=== PATIENT | female | born 1940 | race Caucasian/White ===

== ENCOUNTER 2017-10-15 10:59 | Emergency (ER) | payer MEDICARE, OTHER ==
[~2017-10-15] VITALS: Ht 162.6 cm; Wt 75.3 kg
[~2017-10-15 10:59] MED LIST: ACIPHEX20 MG PO; BISOPROLOL FUMA10 MG PO; CALCIUM 600 +1 EA13 PO; CEPHALEXIN500 MG PO; DAILY VITAMIN1 EAC2 PO; DILTIAZEM HCL120 MG PO; FEMARA2.5 MG NG; FERROUS SULFAT325 MG PO; FLUOXETINE HCL10 M1 PO; GLUCOSAMINE H1500 MG PO; LEVOTHYROXINE50 MCG PO; OMEGA 3 1,0001 EACH PO; OXYCODON-ACETA1 EAC2 PO; PERCOCET 7.5-31 EACH PO; RECLAST 55 MG/100 M IV; RHINOCORT AQUA8.6 GM NAS; VITAMIN C500 M4 PO; ZYRTEC10 MG PO
== END 2017-10-15 11:33 | disposition home or self-care (01) ==
LOC: ED 10:59
DX: M25.511 Pain in right shoulder (principal)

== ENCOUNTER 2022-05-20 10:01 | Emergency (ER) | payer MEDICARE, OTHER ==
[~2022-05-20] VITALS: Ht 162.6 cm; Wt 72.6 kg
[~2022-05-20 10:01] MED LIST changes: +MECLIZINE HCL25 MG PO; +ONDANSETRON ODT8 MG PO; +TYLENOL325 MG PO
--- NOTE | 2022-05-21 07:16 | EKG ---
[facility] [address] [facility] [place], [place] [address] Signed Normal sinus rhythm Septal infarct , age undetermined Abnormal ECG When compared with ECG of 03-APR-2022 14:47, No significant change was found Confirmed by ALBERTO LYNNE MD ([id number]) on 05/21/2022 7:16:37 AM Electronically Signed By: ALBERTO LYNNE MD 05/21/22 0716 PATIENT NAME: CHRISMICHELLE Electrocardiogram DATE OF : 38 PHYSICIAN: ALBERTO LYNNE MD REPORT #: [id number] REPORT IS CONFIDENTIAL AND NOT TO BE RELEASED WITHOUT AUTHORIZATION
== END 2022-05-20 18:38 | disposition short-term general hospital (02) ==
LOC: ED 10:01
DX: I63.9 Cerebral infarction, unspecified (principal); I10 Essential (primary) hypertension; Z91.048 Other nonmedicinal substance allergy status; Z91.040 Latex allergy status; Z88.5 Allergy status to narcotic agent; Z88.8 Allergy status to other drugs, medicaments and biological substances; Z79.899 Other long term (current) drug therapy
CPT/HCPCS: 36415; 51701; 70450; 70496; 70498; 71045; 80053; 81001; 84484; 85025; 85610; 85730; 93005; 93010; 99285-25; Q9967

== ENCOUNTER 2022-06-21 09:05 | Emergency (ER) | payer MEDICARE, OTHER ==
[~2022-06-21] VITALS: Ht 162.6 cm; Wt 72.6 kg
[2022-06-21] MEDS ORDERED: CLOPIDOGREL75 MG PO (09:17)
--- NOTE | 2022-06-23 18:57 | EKG ---
[facility] [address] [place] [address] Signed Atrial fibrillation with rapid ventricular response Septal infarct (cited on or before 20-MAY-2022) Cannot rule out Inferior infarct , age undetermined Abnormal ECG When compared with ECG of 20-MAY-2022 10:18, Atrial fibrillation has replaced Sinus rhythm Vent. rate has increased BY 68 BPM Inverted T waves have replaced nonspecific T wave abnormality in Lateral leads Confirmed by ALBERTO LYNNE MD ([id number]) on 06/23/2022 6:57:06 PM Electronically Signed By: ALBERTO LYNNE MD 06/23/22 1857 PATIENT NAME: MICHELLE PEREZ Electrocardiogram DATE OF : 38 PHYSICIAN: ALBERTO LYNNE MD REPORT #: [id number] REPORT IS CONFIDENTIAL AND NOT TO BE RELEASED WITHOUT AUTHORIZATION
== END 2022-06-21 11:06 | disposition home or self-care (01) ==
LOC: ED 09:05
DX: I48.0 Paroxysmal atrial fibrillation (principal); I10 Essential (primary) hypertension; Z86.73 Personal history of transient ischemic attack (TIA), and cerebral infarction without residual deficits; Z91.048 Other nonmedicinal substance allergy status; Z91.040 Latex allergy status; Z88.5 Allergy status to narcotic agent; Z88.8 Allergy status to other drugs, medicaments and biological substances; Z79.899 Other long term (current) drug therapy; Z79.02 Long term (current) use of antithrombotics/antiplatelets
CPT/HCPCS: 36415; 80053; 83735; 84484; 85025; 93005; 93010; 99285-25

== ENCOUNTER 2023-01-11 08:57 | Observation (INO) | payer MEDICARE, OTHER ==
[2023-01-11] VITALS (14 sets, daily range): BP systolic 85–127; BP diastolic 56–95
[~2023-01-11] VITALS: Ht 162.6 cm; Wt 69.0 kg
[~2023-01-11 08:57] MED LIST changes: +ATORVASTATIN CA10 MG PO; +CLOPIDOGREL75 MG PO
[2023-01-11 09:38] LABS: BASOPHILS 0.4 % (0-2); EOSINOPHILS 0.4 % (0-6); HEMATOCRIT 43.5 % (35.0-50.0); HEMOGLOBIN 14.4 g/dL (12.0-18.0); LYMPHOCYTES 9.5 % (24-44); MCHC 33.1 g/dl (30-36); MCV 90.8 fl (81-99); MONOCYTES 9.5 % (0-12); NEUTROPHILS 80.2 % (39-80); PLATELET COUNT 270 K/uL (140-440); RBC 4.79 M/ul (4.3-5.7); RDW 15.8 (10.5-15.0)
[2023-01-11 09:47] LABS: INR 1.05 (0.80-1.30); PROTIME 13.3 Sec (11.2-14.2)
[2023-01-11 09:49] LABS: PARTIAL THROMBOPLASTIN TIME 27.1 Sec (22.9-41.3)
[2023-01-11] MEDS ORDERED: ZYRTEC10 M3 PO (09:49)
[2023-01-11] MEDS ORDERED: DULOXETINE HCL30 MG PO (09:50)
[2023-01-11] MEDS ORDERED: FAMOTIDINE20 MG PO (09:50)
[2023-01-11] MEDS ORDERED: FISH OIL 1,2001 EACH PO (09:51)
[2023-01-11] MEDS ORDERED: IRON325 M1 PO (09:51)
[2023-01-11 09:52] LABS: ALBUMIN 3.9 g/dL (3.4-5.0); ALBUMIN/GLOBULIN RATIO 1.26 (1.1-2.4); ANION GAP 13.6 (7-21); BILIRUBIN, TOTAL 1.3 ng/dL (0.2-1.0); BUN/CREATININE RATIO 10.71 (6.0-28.6); CALCIUM 8.7 mg/dL (8.5-10.1); CREATININE, SERUM 0.84 mg/dL (0.55-1.02); POTASSIUM 3.6 mmol/L (3.5-5.1)
[2023-01-11] MEDS ORDERED: GLUCOSAMINE H1500 MG PO (09:52)
[2023-01-11] MEDS ORDERED: MECLIZINE HCL25 MG PO (09:53)
[2023-01-11] MEDS ORDERED: METOPROLOL SUCC50 MG PO (09:54)
[2023-01-11] MEDS ORDERED: VITAMIN C1000 MG PO (09:54)
[2023-01-11] MEDS ORDERED: CANDICIDAL CAP1 EACH PO (09:54)
[2023-01-11 11:00] LABS: BILIRUBIN, URINE NEGATIVE (negative); BLOOD/HGB, URINE NEGATIVE (Negative); KETONE, URINE NEGATIVE (Negative); LEUK ESTERASE, URINE NEGATIVE (negative); NITRITE, URINE NEGATIVE (negative)
[2023-01-11 11:05] LABS: INFLUENZA B NAA NEGATIVE (NEGATIVE); RESPIRATORY SYNCYTIAL VIR NAA NEGATIVE (NEGATIVE)
[2023-01-11 11:06] LABS: CRYSTALS, URINE NONE SEEN (0-1+); EPITHELIAL CELLS, URINE SQUAMOUS 2+ /lpf (0-1+); RED BLOOD CELLS, URINE 0-1 /hpf (0-5)
[2023-01-11 11:07] LABS: BACTERIA, URINE RARE /hpf (negative); CASTS, URINE NONE SEEN \\lpf; COLLECTION TYPE, URINE CLEAN CATCH; REFLEX CULTURE, URINE No (No)
[2023-01-11] MEDS ORDERED: ATORVASTATIN CA40 MG PO (12:31)
[2023-01-11] MEDS ORDERED: LEVOTHYROXINE25 MCG PO (12:32)
--- NOTE | 2023-01-11 12:47 | NUR ---
pt to rm 129 via akshat pringle, pt stood at bed and trsf to bed, oriented, clear speech, alert. call light in reach.
--- NOTE | 2023-01-11 14:22 | NUR ---
medications reconciled using MARS from facility and pharmacy records
--- NOTE | 2023-01-11 15:01 | NUR ---
PT ABLE TO PARTICIPATE IN CONVERSATION. CONSENTED TO PRAYER. PRAYED FOR ORIENTAL ORTHODOX OF BODY AND SPIRIT.
--- NOTE | 2023-01-11 20:05 | NUR ---
REPORT TAKEN. PT IS UP TO BEDSIDE COMMODE. PT ASSESSMENT WITH IN NORMAL LIMIT, FOCUSED NEURO ASSESSMENT SHOWS FORGETFULLNESS, DISORIENTATED TO TIME AND DATE, AND SLOWED RESPONSES. NIHSS 2. PT CONVERTED TO SINUS BRADYCARDIA AT 2002, CARDIZEM DRIP TURNED OFF. VS STABLE. PT IS RESTING IN BED, WITH NO REPORTS OF PAIN. ALL QUESTIONS AND CONCERNS ADDRESSED AND CALL LIGHT IS WITHIN REACH. BED ALARM SET.
--- NOTE | 2023-01-11 22:00 | NUR ---
PT RESTING IN BED, NEURO ASSESSMENT REVIEWED WITH NO CHANGES AT THIS TIME. VS STABLE. CALL LIGHT WITH IN REACH. NO QUESTIONS OR CONCERNS AT THIS TIME. BED ALARM SET.
[2023-01-12] VITALS (10 sets, daily range): BP systolic 117–143; BP diastolic 72–98
--- NOTE | 2023-01-12 | NUR ---
PT HAS NO NEURO CHANGES AT THIS TIME. VS ARE STABLE AND WNL. ASSESSMENT WITH IN NORMAL LIMITS. ALL QUESTIONS AND CONCERNS ADDRESSED AT THIS TIME. CALL LIGHT WITH IN REACH AND BED ALARM SET.
--- NOTE | 2023-01-12 02:00 | NUR ---
PT RESTING IN BED. NO NEURO CHANGES AT THIS TIME. VS ARE WNL. ALL QUESTIONS AND CONCERNS ANSWERED. CALL LIGHT WITH IN REACH. BED ALARM IS SET
--- NOTE | 2023-01-12 04:34 | NUR ---
PT IS UP TO BEDSIDE COMMODE, PT TRANSFERS WELL WITH STAND BY ASSIST X1. PT HAS NO NEURO CHANGES AT THIS TIME. VS REMAIN WITHIN NORMAL LIMITS. ALL QUESTIONS AND CONCERNS ARE ADDRESSED. PT IS REPOSITIONED BACK IN BED. CALL LIGHT IS WITH IN REACH AND BED ALARM IS SET.
[2023-01-12 05:42] LABS: BASOPHILS 1.3 % (0-2); EOSINOPHILS 1.8 % (0-6); HEMATOCRIT 43.7 % (35.0-50.0); HEMOGLOBIN 14.4 g/dL (12.0-18.0); MCH 29.9 (27-36); MCV 90.7 fl (81-99); MONOCYTES 10.7 % (0-12); NEUTROPHILS 72.2 % (39-80); PLATELET COUNT 270 K/uL (140-440); RBC 4.82 M/ul (4.3-5.7); RDW 15.8 (10.5-15.0)
[2023-01-12 06:11] LABS: ALBUMIN 3.5 g/dL (3.4-5.0); ALBUMIN/GLOBULIN RATIO 1.25 (1.1-2.4); ANION GAP 15.1 (7-21); BILIRUBIN, TOTAL 0.9 ng/dL (0.2-1.0); BUN/CREATININE RATIO 15.21 (6.0-28.6); CALCIUM 8.5 mg/dL (8.5-10.1); CHOLESTEROL/HDL RATIO 1.9; CREATININE, SERUM 0.92 mg/dL (0.55-1.02); PHOSPHORUS, INORGANIC 3.9 mg/dL (2.5-4.9); POTASSIUM 3.1 mmol/L (3.5-5.1); PROTEIN, TOTAL 6.3 g/dL (6.4-8.2)
--- NOTE | 2023-01-12 06:15 | NUR ---
PT HAS HAD NO NEURO CHANGES. PT IS RESTING IN BED. VS ARE WNL. PT HAS NO QUESTIONS OR CONCERNS AT THIS TIME. CALL LIGHT IS WITHIN REACH AND BED ALARM IS ON.
--- NOTE | 2023-01-12 07:30 | NUR ---
REPORT RECEIVED. ECHO BEING DONE AT BEDSIDE.
--- NOTE | 2023-01-12 08:10 | NUR ---
OOB TO CHAIR FOR BREAKFAST. MOVING WELL WITH ASSIST. ABLE TO FOLLOW COMMANDS. WHEN ASKE THE YEAR, STATES 2031. IS L[place]TT[place].
--- NOTE | 2023-01-12 08:23 | NUR ---
REQUEST MADE TO YOLANDA FOR RECORDS/INFORMATION REGARDING COIL PROCEDURE.
--- NOTE | 2023-01-12 10:00 | NUR ---
PHYS THERAPY HERE TO WORK WITH PATIENT. AMBULATED IN HALLWAY. SEE PT NOTE. AFTER AMBULATION, BACK TO CHAIR.
--- NOTE | 2023-01-12 10:30 | NUR ---
INTO SEE PATIENT WITH DR. WHEELER. PATIENT SITTING UP IN CHAIR, STATES SHE IS FEELING WELL. PATIENT LIVES AT [facility] AND PLANS TO RETURN WHEN STABLE. PATIENT HAS PREVIOUS HISTORY OF CVA AND NORMALLY AMBULATES WITH A CANE. PATIENT IS ABLE TO GET HERSELF TO AND FROM THE DINNING ROOM. DENIES NEEDS FOR FURTHER DME. DENIES FINANCIAL NEEDS. PATIENTS DAUGHTER CARLIE IS THE BEST CONTACT FOR HER. NO FURTHER QUESTION OR CONCERNS FROM THE PATIENT AT THIS TIME. PER DR. WHEELER PATIENT MAY NEED MRI FOR FURTHER WORK UP.
--- NOTE | 2023-01-12 11:08 | NUR ---
DINESH TO SPEAK WITH CARE TEAM AT DR. CALDERON'S OFFICE [phone]. AFTER REVIEW OF THE PATIENT CHART BY DR. CALDERON'S MANAGER CREDIT, "NO CLIPS WERE INVOLVED IN THE PROCEDURE COILING PROCEDURE, JUST GLUE." ALL HARDWARE IS MRI COMPATIBLE. DR. WHEELER ADVISED AND GIVEN THE CONTACT NUMBER FOR DR. CALDERON'S OFFICE.
--- NOTE | 2023-01-12 11:34 | NUR ---
UR NOTE: MCG MEETS STROKE: ISCHEMIC OBSERVATION CARE
--- NOTE | 2023-01-12 12:16 | NUR ---
ER NOTE, H&P, PT/OT/ST FAXED TO [facility].
--- NOTE | 2023-01-12 12:50 | NUR ---
PATIENT SITTING UP IN CHAIR, FINSIHED WITH LUNCH. PATIENT DENIES TOILET NEED. CALL LIGHT IN EASY REACH.
--- NOTE | 2023-01-12 14:15 | NUR ---
TO MRI VIA W/C. OKAY WITH IF PATIENT GOES TO MRI W/O RN.
--- NOTE | 2023-01-12 15:10 | NUR ---
RETURN TO CCU. TOLERATED MRI WELL.
--- NOTE | 2023-01-12 15:25 | NUR ---
TYLENOL GIVEN FOR THOMAS. DR. WHEELER AWARE PATIENT HAD HER MRI. AWAITING RESULTS.
[2023-01-12] MEDS ORDERED: ELIQUIS5 MG PO (16:19)
--- NOTE | 2023-01-12 17:07 | NUR ---
Orders and dc summary faxed to Alie at [facility]. Texted Lanette Strange, to let her know they have been faxed and pt is leaving shortly by Taxi.
--- NOTE | 2023-01-12 17:40 | NUR ---
DISCHARGE INSTRUCTIONS GIVEN. DISSCHARGED TO [facility]. WILL HAVE TAXI RIDE HOME.
--- NOTE | 2023-01-12 22:27 | EKG ---
[facility] [address] [facility] [place], [place] [address] Signed Atrial fibrillation with rapid ventricular response with premature ventricular or aberrantly conducted complexes Possible Anterior infarct (cited on or before 20-MAY-2022) ST \T\ T wave abnormality, consider inferior ischemia Abnormal ECG When compared with ECG of 29-OCT-2022 11:51, Atrial fibrillation has replaced Sinus rhythm Vent. rate has increased BY 79 BPM Non-specific change in ST segment in Anterior leads Nonspecific T wave abnormality now evident in Inferior leads Nonspecific T wave abnormality now evident in Lateral leads Confirmed by Grayson Wheeler MD () on 01/12/2023 10:26:43 PM Electronically Signed By: GRAYSON WHEELER MD 01/12/232226 PATIENT NAME: MICHELLE PEREZ Electrocardiogram DATE OF : 38 PHYSICIAN: GRAYSON WHEELER MD REPORT #: [id number] REPORT IS CONFIDENTIAL AND NOT TO BE RELEASED WITHOUT AUTHORIZATION
== END 2023-01-12 17:29 | disposition home or self-care (01) ==
LOC: ED 08:57 → CCU 08:58
PROVIDERS: Emergency Medicine; ADMIT Family Medicine; ATTEND Family Medicine
DX: I63.9 Cerebral infarction, unspecified (principal); R47.9 Unspecified speech disturbances; R13.10 Dysphagia, unspecified; I48.91 Unspecified atrial fibrillation; E03.9 Hypothyroidism, unspecified; I10 Essential (primary) hypertension; Z66 Do not resuscitate; Z88.5 Allergy status to narcotic agent; Z88.8 Allergy status to other drugs, medicaments and biological substances; Z79.899 Other long term (current) drug therapy; Z20.822 Contact with and (suspected) exposure to COVID-19
CPT/HCPCS: 36415; 70450; 70496; 70498; 70551; 71045; 72125; 80053; 80061; 81001; 83036; 83735; 84100; 84443; 84484; 85025; 85610; 85730; 87502; 92610; 93005; 93010; 93306; 96365; 96366; 96376; 97161; 97165; 99285-25; A9270; C9803; G0378; J3480; J3490; J7060; Q9967; U0002

== ENCOUNTER 2023-03-04 11:16 | Emergency (ER) | payer MEDICARE, OTHER ==
[~2023-03-04] VITALS: Ht 162.6 cm; Wt 68.9 kg
[~2023-03-04 11:16] MED LIST changes: +ATORVASTATIN CA40 MG PO; +CANDICIDAL CAP1 EACH PO; +DULOXETINE HCL30 MG PO; +ELIQUIS5 MG PO; +FAMOTIDINE20 MG PO; +FISH OIL 1,2001 EACH PO; +IRON325 M1 PO; +LEVOTHYROXINE25 MCG PO; +METOPROLOL SUCC50 MG PO; +VITAMIN C1000 MG PO; +ZYRTEC10 M3 PO
[2023-03-04] MEDS ORDERED: ELIQUIS5 MG (11:22)
[2023-03-04 11:50] LABS: BASOPHILS 1.2 % (0-2); EOSINOPHILS 1.6 % (0-6); HEMATOCRIT 40.4 % (35.0-50.0); HEMOGLOBIN 13.6 g/dL (12.0-18.0); LYMPHOCYTES 21.2 % (24-44); MCH 30.6 (27-36); MCHC 33.7 g/dl (30-36); MCV 90.7 fl (81-99); MONOCYTES 12.5 % (0-12); NEUTROPHILS 63.5 % (39-80); PLATELET COUNT 323 K/uL (140-440); RBC 4.46 M/ul (4.3-5.7); RDW 14.7 (10.5-15.0)
[2023-03-04 11:56] LABS: ALBUMIN 3.3 g/dL (3.4-5.0); ANION GAP 12.7 (7-21); BILIRUBIN, TOTAL 0.8 ng/dL (0.2-1.0); BUN/CREATININE RATIO 13.59 (6.0-28.6); CALCIUM 8.9 mg/dL (8.5-10.1); CREATININE, SERUM 1.03 mg/dL (0.55-1.02); POTASSIUM 3.7 mmol/L (3.5-5.1); PROTEIN, TOTAL 6.6 g/dL (6.4-8.2)
[2023-03-04 12:18] LABS: BILIRUBIN, URINE NEGATIVE (negative); BLOOD/HGB, URINE NEGATIVE (Negative); KETONE, URINE NEGATIVE (Negative); LEUK ESTERASE, URINE NEGATIVE (negative); NITRITE, URINE NEGATIVE (negative)
[2023-03-04] MEDS ORDERED: ONDANSETRON ODT4 MG PO (13:25)
[2023-03-04 13:43] VITALS: BP 128/94
--- NOTE | 2023-03-04 15:23 | EKG ---
[facility] [address] [facility] [place] [address] Signed Atrial fibrillation with rapid ventricular response Septal infarct (cited on or before 20-MAY-2022) Abnormal ECG When compared with ECG of 11-JAN-2023 10:12, ST no longer depressed in Inferior leads ST no longer depressed in Lateral leads Nonspecific T wave abnormality no longer evident in Inferior leads Nonspecific T wave abnormality no longer evident in Lateral leads Confirmed by DARON BORDEN MD ([id number]) on 03/04/2023 3:22:42 PM Electronically Signed By: DARON BORDEN 03/04/23 1523 PATIENT NAME: MICHELLE PEREZ Electrocardiogram DATE OF : 38 PHYSICIAN: DARON BORDEN REPORT #: [id number] REPORT IS CONFIDENTIAL AND NOT TO BE RELEASED WITHOUT AUTHORIZATION
== END 2023-03-04 13:40 | disposition home or self-care (01) ==
LOC: ED 11:16
PROVIDERS: Emergency Medicine
DX: R10.32 Left lower quadrant pain (principal); I10 Essential (primary) hypertension; I48.91 Unspecified atrial fibrillation; K21.9 Gastro-esophageal reflux disease without esophagitis; E78.5 Hyperlipidemia, unspecified; E03.9 Hypothyroidism, unspecified; Z79.02 Long term (current) use of antithrombotics/antiplatelets; Z79.899 Other long term (current) drug therapy; Z79.890 Hormone replacement therapy; Z88.5 Allergy status to narcotic agent; Z88.8 Allergy status to other drugs, medicaments and biological substances; Z91.040 Latex allergy status; Z91.048 Other nonmedicinal substance allergy status
CPT/HCPCS: 36415; 74174; 80053; 81003; 83690; 85025; 93005; 93010; J1170; J2405; Q9967

== ENCOUNTER 2024-04-05 11:57 | Emergency (ER) | payer MEDICARE, OTHER ==
[~2024-04-05] VITALS: Ht 162.6 cm; Wt 75.7 kg
[~2024-04-05 11:57] MED LIST changes: +ELIQUIS5 MG; +HYDROCODON-ACE1 EA10 PO; +ONDANSETRON ODT4 MG PO
[2024-04-05] MEDS ORDERED: ondansetron HCL 4 MG/2 ML VIAL IV ONE (12:30)
[2024-04-05 12:45] LABS: BASOPHILS 1.3 % (0-2); EOSINOPHILS 0.2 % (0-6); HEMATOCRIT 31.6 % (35.0-50.0); HEMOGLOBIN 10.2 g/dL (12.0-18.0); LYMPHOCYTES 12.8 % (24-44); MCHC 32.2 g/dl (30-36); MCV 87.1 fl (81-99); MONOCYTES 6.3 % (0-12); NEUTROPHILS 79.4 % (39-80); PLATELET COUNT 434 K/uL (140-440); RBC 3.63 M/ul (4.3-5.7); RDW 15.2 (10.5-15.0)
[2024-04-05 13:01] LABS: ALBUMIN 3.6 g/dL (3.4-5.0); ALBUMIN/GLOBULIN RATIO 1.06 (1.1-2.4); ANION GAP 12.2 (7-21); BILIRUBIN, TOTAL 0.6 ng/dL (0.2-1.0); BUN/CREATININE RATIO 16.5 (6.0-28.6); CALCIUM 8.9 mg/dL (8.5-10.1); CREATININE, SERUM 1.03 mg/dL (0.55-1.02); MAGNESIUM 2.2 mg/dL (1.8-2.4); POTASSIUM 4.2 mmol/L (3.5-5.1)
[2024-04-05 13:27] LABS: INR 1.11 (0.80-1.30); PROTIME 14.3 Sec (11.2-14.2)
[2024-04-05] MEDS ORDERED: ACETAMINOPHEN 325 MG TAB PO ONE (15:30)
[2024-04-05 15:46] VITALS: BP 117/72
== END 2024-04-05 15:47 | disposition home or self-care (01) ==
LOC: ED 11:57
PROVIDERS: Emergency Medicine
DX: R10.11 Right upper quadrant pain (principal); I10 Essential (primary) hypertension; E03.9 Hypothyroidism, unspecified; Z86.73 Personal history of transient ischemic attack (TIA), and cerebral infarction without residual deficits; Z91.09 Other allergy status, other than to drugs and biological substances; Z91.040 Latex allergy status; Z88.5 Allergy status to narcotic agent; Z88.8 Allergy status to other drugs, medicaments and biological substances; Z79.01 Long term (current) use of anticoagulants; Z79.899 Other long term (current) drug therapy
CPT/HCPCS: 36415; 76705; 80053; 83690; 83735; 85025; 85610; 96374; 99284-25; A9270; J2405

== ENCOUNTER 2024-05-23 13:57 | Emergency (ER) | payer MEDICARE, OTHER ==
[~2024-05-23] VITALS: Ht 162.6 cm; Wt 78.9 kg
[2024-05-23 14:17] LABS: BASOPHILS 2.3 % (0-2); EOSINOPHILS 1.7 % (0-6); HEMATOCRIT 30.1 % (35.0-50.0); HEMOGLOBIN 9.8 g/dL (12.0-18.0); LYMPHOCYTES 22.1 % (24-44); MCH 28.2 (27-36); MCHC 32.4 g/dl (30-36); MCV 86.8 fl (81-99); MONOCYTES 11.4 % (0-12); NEUTROPHILS 62.5 % (39-80); PLATELET COUNT 402 K/uL (140-440); RBC 3.47 M/ul (4.3-5.7)
[2024-05-23 14:36] LABS: ALBUMIN 3.5 g/dL (3.4-5.0); ALBUMIN/GLOBULIN RATIO 1.21 (1.1-2.4); ANION GAP 11.9 (7-21); BILIRUBIN, TOTAL 0.3 mg/dL (0.2-1.0); BUN/CREATININE RATIO 13.04 (6.0-28.6); CREATININE, SERUM 0.92 mg/dL (0.55-1.02); MAGNESIUM 2.1 mg/dL (1.8-2.4); POTASSIUM 3.9 mmol/L (3.5-5.1); PROTEIN, TOTAL 6.4 g/dL (6.4-8.2)
[2024-05-23 15:21] VITALS: BP 130/79
--- NOTE | 2024-05-24 16:30 | EKG ---
[facility] [address] [facility] [place] [address] Signed Normal sinus rhythm Possible Anterior infarct (cited on or before 20-MAY-2022) Abnormal ECG When compared with ECG of 04-MAR-2023 12:15, Sinus rhythm has replaced Atrial fibrillation Confirmed by Grayson Wheeler MD () on 05/24/2024 4:30:12 PM Electronically Signed By: GRAYSON WHEELER MD 05/24/24 1630 PATIENT NAME: MICHELLE PEREZ Electrocardiogram DATE OF : 38 PHYSICIAN: GRAYSON WHEELER MD REPORT #: [id number] REPORT IS CONFIDENTIAL AND NOT TO BE RELEASED WITHOUT AUTHORIZATION
== END 2024-05-23 15:22 | disposition home or self-care (01) ==
LOC: ED 13:57
PROVIDERS: Emergency Medicine
DX: I45.5 Other specified heart block (principal); D64.9 Anemia, unspecified; I10 Essential (primary) hypertension; I48.91 Unspecified atrial fibrillation; E03.9 Hypothyroidism, unspecified; K21.9 Gastro-esophageal reflux disease without esophagitis; Z86.73 Personal history of transient ischemic attack (TIA), and cerebral infarction without residual deficits; Z88.5 Allergy status to narcotic agent; Z88.8 Allergy status to other drugs, medicaments and biological substances; Z91.040 Latex allergy status; Z91.048 Other nonmedicinal substance allergy status; Z79.01 Long term (current) use of anticoagulants; Z79.890 Hormone replacement therapy; Z79.899 Other long term (current) drug therapy
CPT/HCPCS: 36415; 80053; 83735; 84484; 85025; 93005; 93010; 99284

== ENCOUNTER 2024-06-22 19:37 | Emergency (ER) | payer MEDICARE, OTHER ==
[~2024-06-22] VITALS: Ht 162.6 cm; Wt 78.0 kg
[2024-06-22] MEDS ORDERED: FAMOTIDINE 20 MG/ 2 ML VIAL IV ONE (20:15)
[2024-06-22] MEDS ORDERED: KETOROLAC TROMETHAMINE 15 MG/ML VIAL IV ONE (20:15)
[2024-06-22] MEDS ORDERED: ACETAMINOPHEN500 M1 PO (20:19)
[2024-06-22] MEDS ORDERED: PROBIOTIC1 EAC8 (20:20)
[2024-06-22 20:38] LABS: BASOPHILS 1.5 % (0-2); EOSINOPHILS 2.3 % (0-6); HEMATOCRIT 26.5 % (35.0-50.0); HEMOGLOBIN 8.5 g/dL (12.0-18.0); LYMPHOCYTES 23.4 % (24-44); MCH 26.9 (27-36); MCV 84.1 fl (81-99); MONOCYTES 10.6 % (0-12); NEUTROPHILS 62.2 % (39-80); PLATELET COUNT 394 K/uL (140-440); RBC 3.15 M/ul (4.3-5.7); RDW 15.5 (10.5-15.0)
[2024-06-22 20:55] LABS: ALBUMIN 3.2 g/dL (3.4-5.0); ALBUMIN/GLOBULIN RATIO 1.19 (1.1-2.4); ANION GAP 11.3 (7-21); BILIRUBIN, TOTAL 0.2 mg/dL (0.2-1.0); BUN/CREATININE RATIO 30.86 (6.0-28.6); CALCIUM 8.5 mg/dL (8.5-10.1); CREATININE, SERUM 0.81 mg/dL (0.55-1.02); POTASSIUM 3.3 mmol/L (3.5-5.1); PROTEIN, TOTAL 5.9 g/dL (6.4-8.2)
[2024-06-22] MEDS ORDERED: LACTATED RINGER'S 1,000 ML IV ONE (21:15)
[2024-06-22 23:17] LABS: BILIRUBIN, URINE NEGATIVE (negative); BLOOD/HGB, URINE TRACE-L (Negative); KETONE, URINE NEGATIVE (Negative); LEUK ESTERASE, URINE TRACE (negative); NITRITE, URINE NEGATIVE (negative)
[2024-06-22 23:26] LABS: BACTERIA, URINE RARE /hpf (negative); CASTS, URINE NONE SEEN \\lpf; COLLECTION TYPE, URINE CLEAN CATCH; CRYSTALS, URINE NONE SEEN (0-1+); EPITHELIAL CELLS, URINE SQUAMOUS 2+ /lpf (0-1+); RED BLOOD CELLS, URINE 0-1 /hpf (0-5); REFLEX CULTURE, URINE No (No)
[2024-06-23] MEDS ORDERED: AMOXICILLIN/CLAVULANATE K 875 MG TAB PO ONE (03:00)
[2024-06-23] MEDS ORDERED: DEXAMETHASONE SOD PHOS 10 MG/ML VIAL IV ONE (03:00)
[2024-06-23] MEDS ORDERED: METHYLPREDNISOLO4 M1 PO (03:05)
[2024-06-23] MEDS ORDERED: AMOX TR-K CLV1 EAC1 PO (03:05)
[2024-06-23 04:26] VITALS: BP 131/68
--- NOTE | 2024-06-23 15:56 | EKG ---
[facility] [address] [facility] [place] [address] Signed Sinus rhythm with premature supraventricular complexes Possible Anterior infarct (cited on or before 20-MAY-2022) Abnormal ECG When compared with ECG of 23-MAY-2024 14:00, premature supraventricular complexes are now present Confirmed by Grayson Wheeler MD () on 06/23/2024 3:56:18 PM Electronically Signed By: GRAYSON WHEELER MD 06/23/24 1556 PATIENT NAME: MICHELLE PEREZ Electrocardiogram DATE OF : 38 PHYSICIAN: GRAYSON WHEELER MD REPORT #: [id number] REPORT IS CONFIDENTIAL AND NOT TO BE RELEASED WITHOUT AUTHORIZATION
== END 2024-06-23 06:20 | disposition home or self-care (01) ==
LOC: ED 19:37
PROVIDERS: Internal Medicine
DX: M94.0 Chondrocostal junction syndrome [Tietze] (principal); N39.0 Urinary tract infection, site not specified; I10 Essential (primary) hypertension; I48.91 Unspecified atrial fibrillation; Z91.048 Other nonmedicinal substance allergy status; Z91.040 Latex allergy status; Z88.5 Allergy status to narcotic agent; Z88.8 Allergy status to other drugs, medicaments and biological substances
CPT/HCPCS: 36415; 71045; 80053; 81001; 83690; 84484; 85025; 85379; 87088; 93005; 93010; 96374; 96375; 99285-25; J1100; J1885; J7121

== ENCOUNTER 2024-08-02 09:32 | Emergency (ER) | payer MEDICARE, OTHER ==
[~2024-08-02] VITALS: Ht 162.6 cm; Wt 80.4 kg
[~2024-08-02 09:32] MED LIST changes: +ACETAMINOPHEN500 M1 PO; +AMOX TR-K CLV1 EAC1 PO; +METHYLPREDNISOLO4 M1 PO; +PROBIOTIC1 EAC8
[2024-08-02 09:55] LABS: BASOPHILS 0.2 % (0-2); EOSINOPHILS 1.4 % (0-6); HEMATOCRIT 27.9 % (35.0-50.0); HEMOGLOBIN 8.7 g/dL (12.0-18.0); LYMPHOCYTES 15.5 % (24-44); MCH 26.3 (27-36); MCHC 31.3 g/dl (30-36); MONOCYTES 7.8 % (0-12); NEUTROPHILS 75.1 % (39-80); PLATELET COUNT 520 K/uL (140-440); RBC 3.32 M/ul (4.3-5.7); RDW 17.3 (10.5-15.0)
[2024-08-02 10:07] LABS: ALBUMIN 3.2 g/dL (3.4-5.0); ALBUMIN/GLOBULIN RATIO 1.07 (1.1-2.4); ANION GAP 14.9 (7-21); BILIRUBIN, TOTAL 0.2 mg/dL (0.2-1.0); BUN/CREATININE RATIO 22.34 (6.0-28.6); CALCIUM 8.1 mg/dL (8.5-10.1); CREATININE, SERUM 0.94 mg/dL (0.55-1.02); POTASSIUM 3.9 mmol/L (3.5-5.1); PROTEIN, TOTAL 6.2 g/dL (6.4-8.2)
[2024-08-02 11:31] LABS: BILIRUBIN, URINE NEGATIVE (negative); BLOOD/HGB, URINE NEGATIVE (Negative); KETONE, URINE NEGATIVE (Negative); LEUK ESTERASE, URINE NEGATIVE (negative); NITRITE, URINE NEGATIVE (negative); PH, URINE 7.5 (5-7)
[2024-08-02 11:33] VITALS: BP 120/76
== END 2024-08-02 11:30 | disposition home or self-care (01) ==
LOC: ED 09:32
PROVIDERS: Emergency Medicine
DX: R53.1 Weakness (principal); I10 Essential (primary) hypertension; I48.91 Unspecified atrial fibrillation; E03.9 Hypothyroidism, unspecified; Z79.899 Other long term (current) drug therapy; Z91.048 Other nonmedicinal substance allergy status; Z91.040 Latex allergy status; Z88.5 Allergy status to narcotic agent; Z88.8 Allergy status to other drugs, medicaments and biological substances; Z86.73 Personal history of transient ischemic attack (TIA), and cerebral infarction without residual deficits
CPT/HCPCS: 36415; 80053; 81003; 85025; 99284

== ENCOUNTER 2024-10-11 12:26 | Emergency (ER) | payer MEDICARE, OTHER ==
[~2024-10-11] VITALS: Ht 162.6 cm; Wt 81.0 kg
[2024-10-11 12:43] LABS: BASOPHILS 1.1 % (0.1-1.2); EOSINOPHILS 0.9 % (0.7-5.8); LYMPHOCYTES 11.1 % (19.3-51.7); MCH 26.9 PG (25.6-32.2); MCHC 30.9 g/dL (32.2-35.5); MCV 86.9 fL (79.4-94.8); MONOCYTES 7.4 % (4.7-12.5); NEUTROPHILS 79.1 % (34.0-71.1); RBC 3.98 M/uL (3.93-5.22)
[2024-10-11 13:04] LABS: ALT (SGPT) 23.0 U/L (14-59); AST (SGOT) 20.0 U/L (15-37); GLOMERULAR FILTRATION RATE,EST 76.0 mL/min (>60); PROTEIN, TOTAL 6.7 g/dL (6.4-8.2); UREA NITROGEN 19.0 mg/dL (7-18)
[2024-10-11 13:27] LABS: BLOOD/HGB, URINE NEGATIVE (Negative); KETONE, URINE NEGATIVE (Negative); LEUK ESTERASE, URINE NEGATIVE (negative); NITRITE, URINE NEGATIVE (negative)
[2024-10-11 15:06] VITALS: BP 158/78
== END 2024-10-11 15:46 | disposition home or self-care (01) ==
LOC: ED 12:26
PROVIDERS: Emergency Medicine
DX: R11.0 Nausea (principal); I10 Essential (primary) hypertension; I48.91 Unspecified atrial fibrillation; K21.9 Gastro-esophageal reflux disease without esophagitis; Z91.040 Latex allergy status; Z79.01 Long term (current) use of anticoagulants
CPT/HCPCS: 36415; 51701; 71045; 80053; 81003; 83690; 84484; 85025; 99284-25; J2405

== ENCOUNTER 2024-12-20 13:07 | Emergency (ER) | payer MEDICARE, OTHER ==
[~2024-12-20] VITALS: Ht 162.6 cm; Wt 80.5 kg
[2024-12-20 13:17] LABS: BASOPHILS 0.6 % (0.1-1.2); EOSINOPHILS 0.1 % (0.7-5.8); LYMPHOCYTES 5.6 % (19.3-51.7); MCH 28.7 PG (25.6-32.2); MCHC 32.6 g/dL (32.2-35.5); MCV 88.0 fL (79.4-94.8); MONOCYTES 8.1 % (4.7-12.5); NEUTROPHILS 85.3 % (34.0-71.1); RBC 4.74 M/uL (3.93-5.22)
[2024-12-20 13:38] LABS: ALT (SGPT) 18.0 U/L (14-59); AST (SGOT) 23.0 U/L (15-37); GLOMERULAR FILTRATION RATE,EST 67.0 mL/min (>60); PROTEIN, TOTAL 7.2 g/dL (6.4-8.2); UREA NITROGEN 11.0 mg/dL (7-18)
[2024-12-20] MEDS ORDERED: ACETAMINOPHEN 325 MG TAB PO ONE (13:45)
[2024-12-20] MEDS ORDERED: POTASSIUM CHLORIDE 10 MEQ TABCR PO ONE (15:30)
[2024-12-20] MEDS ORDERED: POTASSIUM CHLORIDE 10 MEQ/100 ML BAG IV ONE (15:30)
[2024-12-20] MEDS ORDERED: POTASSIUM CHLO20 ME2 PO (15:30)
[2024-12-20 16:57] VITALS: BP 96/58
--- NOTE | 2024-12-24 10:39 | EKG ---
[facility] [address] [facility] [place], [place] [address] Signed Atrial fibrillation with rapid ventricular response Inferior infarct , age undetermined Anteroseptal infarct , age undetermined ST \T\ T wave abnormality, consider lateral ischemia Abnormal ECG No previous ECGs available Confirmed by Sonia Bowles DO ([id number]) on 12/24/2024 10:39:25 AM Electronically Signed By: SONIA BOWLES DO 12/24/24 1039 PATIENT NAME: MICHELLE PEREZ NIGHAT Electrocardiogram DATE OF : 38 PHYSICIAN: SONIA BOWLES DO REPORT #: [id number] REPORT IS CONFIDENTIAL AND NOT TO BE RELEASED WITHOUT AUTHORIZATION
== END 2024-12-20 17:23 | disposition home or self-care (01) ==
LOC: ED 13:07
PROVIDERS: Emergency Medicine
DX: I48.0 Paroxysmal atrial fibrillation (principal); E87.6 Hypokalemia; I10 Essential (primary) hypertension; K21.9 Gastro-esophageal reflux disease without esophagitis; Z91.048 Other nonmedicinal substance allergy status; Z86.73 Personal history of transient ischemic attack (TIA), and cerebral infarction without residual deficits; Z91.040 Latex allergy status; Z88.5 Allergy status to narcotic agent; Z88.8 Allergy status to other drugs, medicaments and biological substances; Z79.01 Long term (current) use of anticoagulants; Z79.899 Other long term (current) drug therapy
CPT/HCPCS: 36415; 71045; 80053; 83735; 84484; 85025; 93005; 93010; 94640; 96365; 96375; 99285-25; A9270; J3480

== ENCOUNTER 2025-02-12 11:56 | Inpatient (IN) | payer MEDICARE, OTHER ==
[~2025-02-12] VITALS: Ht 162.6 cm; Wt 77.2 kg
--- OUTSIDE RECORDS SUMMARY | ~2025-02-12 | XMS | Continuity of Care Document ---
Demographics + + + | Address | [address] | | | [place] [address] | + + + | Preferred Language | Unknown | + + + | Marital Status | | + + + | Restorationism Affiliation | Unknown | + + + | Race | White | + + + | Ethnic Group | Not or | + + + Author + + + | Author | [facility] | + + + | Organization | [facility] | + + + | Address | [address] | | | [place] [address] | + + + | Phone | | + + + Care Team Providers + + + + | Care Communication Clerk Name | Role | Phone | + + + + Unavailable | Unavailable | + + + + Unavailable | Unavailable | + + + + Allergies No information. Encounters No information. Functional Status No information. Immunizations + + + + | date | description | facility | + + + + | (no date) | No vaccine administered | [facility] | | | [facility] | + + + + Medications + + + + | date | description | facility | + + + + | (no date) | cetirizine hydrochloride | [facility] | | | 10 MG Oral Capsule | [facility] | + + + + | (no date) | acetaminophen 325 MG / | [facility] | | | oxycodone hydrochloride 7.5 | [facility] | | | MG Oral T | | + + + + | (no ) | calcium carbonate 1500 MG | [facility] | | | / cholecalciferol 800 UNT | [facility] | | | Oral Tab | | + + + + | (no ) | apixaban 5 MG Oral Tablet | [facility] | | | [Eliquis] | [facility] | + + + + | 2024-12-20 00:00 | potassium chloride 20 MEQ | [facility] | | | Extended Release Oral | [facility] | | | Tablet | | + + + + | (no ) | acetaminophen 500 MG Oral | [facility] | | | Tablet | [facility] | + + + + | (no ) | ascorbic acid 1000 MG Oral | [facility] | | | Tablet | [facility] | + + + + | (no ) | clopidogrel 75 MG Oral | [facility] | | | Tablet | [facility] | + + + + | (no ) | famotidine 20 MG Oral | [facility] | | | Tablet | [facility] | + + + + | (no ) | ferrous sulfate 325 MG | [facility] | | | Oral Tablet | [facility] | + + + + | (no ) | duloxetine 30 MG Delayed | [facility] | | | Release Oral Capsule | [facility] | + + + + | (no date) | atorvastatin 40 MG Oral | [facility] | | | Tablet | [facility] | + + + + | (no date) | 100 ML zoledronic acid | [facility] | | | 0.05 MG/ML Injection | [facility] | | | [Reclast] | | + + + + | (no date) | glucosamine hydrochloride | [facility] | | | 1500 MG Oral Tablet | [facility] | + + + + | (no date) | diltiazem hydrochloride | [facility] | | | 120 MG Oral Tablet | [facility] | + + + + | (no date) | rabeprazole sodium 20 MG | [facility] | | | Delayed Release Oral Tablet | [facility] | | | [Aciphe | | + + + + | (no date) | 24 HR metoprolol succinate | [facility] | | | 50 MG Extended Release | [facility] | | | Oral Table | | + + + + | (no date) | meclizine hydrochloride 25 | [facility] | | | MG Oral Tablet | [facility] | + + + + Problems + + + + | date | description | facility | + + + + | 2024-12-20 00:00 | Paroxysmal atrial | [facility] | | | fibrillation with rapid | [facility] | | | ventricular response | | + + + + | 2024-12-20 00:00 | Hypokalemia | [facility] | | | | [facility] | + + + + Procedures No information. Results/Labs +--------+--------+ +---------+--------+---------+ | test | date | facility | value | unit | notes | +--------+--------+ +---------+--------+---------+ + + | Result panel 1 | + + + + + +---------+ + + | Blood | 2024-12-20 | | 14.54 | (missing) | (missing) | | leukocytes | 13:10 | [facility] | | | | | automated [facility] count | | [facility] | | | | | (number/volu | | Hospital | | | | | me) | | | | | | + + + +---------+ + + + + | Result panel 2 | + + + + + +-------+ + + | Automated | 2024-12-20 | | 5.6 | (missing) | (missing) | | blood | 13:10 | [facility] | | | | | lymphocyte | [facility] | | | | | count as | | Ye | | | | | percentage | | Hospital | | | | | ot total | | | | | | | leukocytes | | | | | | + + + +-------+ + + + + | Result panel 3 | + + + + + +-------+ + + | Automated | 2024-12-20 | | 8.1 | (missing) | (missing) | | blood | 13:10 | [facility] | | | | | monocyte | | - [facility] | | | | | count as | | Ye | | | | | percentage | | Hospital | | | | | of total | | | | | | | leukocytes | | | | | | + + + +-------+ + + + + | Result panel 4 | + + + + + +-------+ + + | Automated | 2024-12-20 | | 0.1 | (missing) | (missing) | | blood | 13:10 | [facility] | | | | | eosinophil | | - [facility] | | | | | count as | | Ye | | | | | percentage | | Hospital | | | | | of total | | | | | | | leukocytes | | | | | | + + + +-------+ + + + + | Result panel 5 | + + + + + +-------+ + + | Automated | 2024-12-20 | | 0.6 | (missing) | (missing) | | blood | 13:10 | [facility] | | | | | basophil | | - [facility] | | | | | count as | | Ye | | | | | percentage | | Hospital | | | | | of total | | | | | | | leukocytes | | | | | | + + + +-------+ + + + + | Result panel 6 | + + + + + +-------+ + + | Serum or | 2024-12-20 | | 112 | (missing) | (missing) | | plasma | 13:10 | [facility] | | | | | glucose | | [facility] | measurement | | Ye | | | | | (mass/volume | | Hospital | | | | | ) | | | | | | + + + +-------+ + + + + | Result panel 7 | + + + + + +------+ + + | Serum or | 2024-12-20 | | 11 | (missing) | (missing) | | plasma urea | 13:10 | [facility] | | | | | nitrogen | | - [facility] | [facility] | measurement | | Ye | | | | | (mass/volume | | Hospital | | | | | ) | | | | | | + + + +------+ + + + + | Result panel 8 | + + + + + +--------+ + + | Serum or | 2024-12-20 | | 0.85 | (missing) | (missing) | | plasma | 13:10 | [facility] | | | | | creatinine | | [facility] | measurement | | Ye | | | | | (mass/volume | | Hospital | | | | | ) | | | | | | + + + +--------+ + + + + | Result panel 9 | + + + + + +------+ + + | Glomerular | 2024-12-20 | | 67 | (missing) | (missing) | | filtration | 13:10 | [facility] | | | | | rate/1.73 sq | | [facility] | | | | | M.predicted | | Ye | | | | | [Volume | | Hospital | | | | | Rate/Area] | | | | | | | inSerum, | | | | | | | Plasma or | | | | | | | Blood by | | | | | | | Creatinine-b | | | | | | | ased formula | | | | | | | (CKD-EPI | | | | | | | 2020) | | | | | | + + + +------+ + + + + | Result panel 10 | + + + + + +---------+ + + | Serum or | 2024-12-20 | | 12.94 | (missing) | (missing) | | plasma urea | 13:10 | [facility] | | | | | nitrogen/cre | | - [facility] | | | | | atinine mass | | Ye | | | | | ratio | | Hospital | | | | + + + +---------+ + + + + | Result panel 11 | + + + + + +-------+ + + | Serum or | 2024-12-20 | | 139 | (missing) | (missing) | | plasma | 13:10 | [facility] | | | | | sodium | | - [facility] | | [facility] | | measurement | | Ye | | | | | (moles/volum | | Hospital | | | | | e) | | | | | | + + + +-------+ + + + + | Result panel 12 | + + + + + +--------+ + + | Blood | 2024-12-20 | | 4.74 | (missing) | (missing) | | erythrocytes | 13:10 | [facility] | | | | | automated | [facility] - [facility] | [facility] | count | | Ye | | | | | (number/volu | | Hospital | | | | | me) | | | | | | + + + +--------+ + + + + | Result panel 13 | + + + + + +-------+ + + | Serum or | 2024-12-20 | | 3.2 | (missing) | (missing) | | plasma | 13:10 | [facility] | | | | | potassium | | - [facility] | | [facility] | measurement | | Ye | | | | | (moles/volum | | Hospital | | | | | e) | | | | | | + + + +-------+ + + + + | Result panel 14 | + + + + + +-------+ + + | Serum or | 2024-12-20 | | 104 | (missing) | (missing) | | plasma | 13:10 | [facility] | | | | | chloride | | - [facility] | | | [facility] | measurement | | Ye | | | | | (moles/volum | | Hospital | | | | | e) | | | | | | + + + +-------+ + + + + | Result panel 15 | + + + + + +------+ + + | Serum or | 2024-12-20 | | 26 | (missing) | (missing) | | plasma | 13:10 | [facility] | | | | | carbon | | - [facility] | | | | | dioxide, | | Ye | | | | | total | | Hospital | | | | | measurement | | | | | | | (moles/volum | | | | | | | e) | | | | | | + + + +------+ + + + + | Result panel 16 | + + + + + +--------+ + + | Serum or | 2024-12-20 | | 12.2 | (missing) | (missing) | | plasma anion | 13:10 | [facility] | | | | | gap 4 | [facility] | [facility] | | | | | | | Hospital | | | | + + + +--------+ + + + + | Result panel 17 | + + + + + +-------+ + + | Serum or | 2024-12-20 | | 8.6 | (missing) | (missing) | | plasma | 13:10 | [facility] | | | | | calcium | | - [facility] | | [facility] | | measurement | | Ye | | | | | (mass/volume | | Hospital | | | | | ) | | | | | | + + + +-------+ + + + + | Result panel 18 | + + + + + +-------+ + + | Serum or | 2024-12-20 | | 2.1 | (missing) | (missing) | | plasma | 13:10 | [facility] | | | | | magnesium | | - [facility] | | [facility] | | measurement | | Ye | | | | | (mass/volume | | Hospital | | | | | ) | | | | | | + + + +-------+ + + + + | Result panel 19 | + + + + + +-------+ + + | Serum or | 2024-12-20 | | 7.2 | (missing) | (missing) | | plasma | 13:10 | [facility] | | | | | protein | | - [facility] | | [facility] | | measurement | | Ye | | | | | (mass/volume | | Hospital | | | | | ) | | | | | | + + + +-------+ + + + + | Result panel 20 | + + + + + +-------+ + + | Serum or | 2024-12-20 | | 3.8 | (missing) | (missing) | | plasma | 13:10 | [facility] | | | | | albumin | | - [facility] | | [facility] | measurement | | Ye | | | | | (mass/volume | | Hospital | | | | | ) | | | | | | + + + +-------+ + + + + | Result panel 21 | + + + + + +-------+ + + | Serum | 2024-12-20 | | 3.4 | (missing) | (missing) | | globulin | 13:10 | [facility] | | | | | measurement | | - [facility] | | | | | (mass/volume | | Ye | | | | | ) | | Hospital | | | | + + + +-------+ + + + + | Result panel 22 | + + + + + +--------+ + + | Serum or | 2024-12-20 | | 1.12 | (missing) | (missing) | | plasma | 13:10 | [facility] | | | | | albumin/glob | | - [facility] | | | | | ulin mass | | Ye | | | | | ratio | | Hospital | | | | + + + +--------+ + + + + | Result panel 23 | + + + + + +--------+ + + | Blood | 2024-12-20 | | 13.6 | (missing) | (missing) | | hemoglobin | 13:10 | [facility] | | | | | measurement | | - [facility] | | | | | (mass/volume | | Ye | | | | | ) | | Hospital | | | | + + + +--------+ + + + + | Result panel 24 | + + + + + +-------+ + + | Serum or | 2024-12-20 | | 1.0 | (missing) | (missing) | | plasma total | 13:10 | [facility] | | | | | bilirubin | | - [facility] | [facility] | measurement | | Ye | | | | | (mass/volume | | Hospital | | | | | ) | | | | | | + + + +-------+ + + + + | Result panel 25 | + + + + + +------+ + + | Serum or | 2024-12-20 | | 23 | (missing) | (missing) | | plasma | 13:10 | [facility] | | | | | aspartate | | - [facility] | | | | | aminotransfe | | Ye | | | | | rase | | Hospital | | | | | measurement | | | | | | | (enzymatic | | | | | | | activity/vol | | | | | | | ume) | | | | | | + + + +------+ + + + + | Result panel 26 | + + + + + +------+ + + | Serum or | 2024-12-20 | | 18 | (missing) | (missing) | | plasma | 13:10 | [facility] | | | | | alanine | | - [facility] | | | | | aminotransfe | | Ye | | | | | rase | | Hospital | | | | | measurement | | | | | | | (enzymatic | | | | | | | activity/vol | | | | | | | ume) | | | | | | + + + +------+ + + + + | Result panel 27 | + + + + + +------+ + + | Serum or | 2024-12-20 | | 80 | (missing) | (missing) | | plasma | 13:10 | [facility] | | | | | alkaline | | - [facility] | | | | | phosphatase | | Ye | | | | | measurement | | Hospital | | | | | (enzymatic | | | | | | | activity/vol | | | | | | | ume) | | | | | | + + + +------+ + + + + | Result panel 28 | + + + + + +--------+ + + | Serum or | 2024-12-20 | | 12.2 | (missing) | (missing) | | plasma | 13:10 | [facility] | | | | | cardiac | | - [facility] | | | | | troponin I | | Ye | | | | | measurement | | Hospital | | | | | by high | | | | | | | senstivity | | | | | | | method | | | | | | | (mass/volume | | | | | | | ) | | | | | | + + + +--------+ + + + + | Result panel 29 | + + + + + +--------+ + + | Automated | 2024-12-20 | | 41.7 | (missing) | (missing) | | blood | 13:10 | [facility] | | | | | hematocrit | [facility] - [facility] | [facility] | | Ye | | | | | | | Hospital | | | | + + + +--------+ + + + + | Result panel 30 | + + + + + +--------+ + + | Automated | 2024-12-20 | | 88.0 | (missing) | (missing) | | erythrocyte | 13:10 | [facility] | | | | | mean | | - [facility] | | | | | corpuscular | | Ye | | | | | volume | | Hospital | | | | + + + +--------+ + + + + | Result panel 31 | + + + + + +--------+ + + | Automated | 2024-12-20 | | 28.7 | (missing) | (missing) | | erythrocyte | 13:10 | [facility] | | | | | mean | | - [facility] | | | | | corpuscular | | Ye | | | | | hemoglobin | | Hospital | | | | | (mass per | | | | | | | erythrocyte) | | | | | | | | | | | | | + + + +--------+ + + + + | Result panel 32 | + + + + + +--------+ + + | Automated | 2024-12-20 | | 32.6 | (missing) | (missing) | | erythrocyte | 13:10 | [facility] | | | | | mean | | - [facility] | | | | | corpuscular | | Ye | | | | | hemoglobin | | Hospital | | | | | concentratio | | | | | | | n | | | | | | | measurement | | | | | | | (mass/volume | | | | | | | ) | | | | | | + + + +--------+ + + + + | Result panel 33 | + + + + + +-------+ + + | Automated | 2024-12-20 | | 316 | (missing) | (missing) | | blood | 13:10 | [facility] | | | | | platelet | | - [facility] | | | [facility] | count | | Ye | | | | | (count/volum | | Hospital | | | | | e) | | | | | | + + + +-------+ + + + + | Result panel 34 | + + + + + +--------+ + + | Automated | 2024-12-20 | | 85.3 | (missing) | (missing) | | blood | 13:10 | [facility] | | | | | neutrophil | | - [facility] | | | | | count as | | Ye | | | | | percentage | | Hospital | | | | | of total | | | | | | | leukocytes | | | | | | + + + +--------+ + + Social History + + + + | date | description | facility | + + + + | (no date) | Never smoker | [facility] | | | | [facility] | + + + + Vital Signs No information."
--- OUTSIDE RECORDS SUMMARY | ~2025-02-12 | XMS | Continuity of Care Document ---
Demographics + + + | Address | [address] | | | [place] [address] | + + + | Preferred Language | Unknown | + + + | Marital Status | | + + + | Evangelical Affiliation | Unknown | + + + | Race | White | + + + | Ethnic Group | Not or | + + + Author + + + | Author | [facility] | + + + | Organization | [facility] | + + + | Address | [address] | | | [place] [address] | + + + | Phone | | + + + Care Team Providers + + + + | Care Scientific Laboratory Supervisor Name | Role | Phone | + + + + Unavailable | Unavailable | + + + + Unavailable | Unavailable | + + + + Allergies No information. Encounters No information. Functional Status No information. Immunizations + + + + | date | description | facility | + + + + | (no date) | No vaccine administered | [facility] | | | | [facility] | + + + + Medications + + + + | date | description | facility | + + + + | (no date) | cetirizine hydrochloride | [facility] | | | 10 MG Oral Capsule | [facility] | + + + + | (no date) | acetaminophen 325 MG / | [facility] | | | oxycodone hydrochloride 7.5 | [facility] | | | MG Oral T | | + + + + | (no ) | calcium carbonate 1500 MG | [facility] | | | / cholecalciferol 800 UNT | [facility] | | | Oral Tab | | + + + + | (no ) | apixaban 5 MG Oral Tablet | [facility] | | | [Eliquis] | [facility] | + + + + | 2024-12-20 00:00 | potassium chloride 20 MEQ | [facility] | | | Extended Release Oral | [facility] | | | Tablet | | + + + + | (no ) | acetaminophen 500 MG Oral | [facility] | | | Tablet | [facility] | + + + + | (no ) | ascorbic acid 1000 MG Oral | [facility] | | | Tablet | [facility] | + + + + | (no ) | clopidogrel 75 MG Oral | [facility] | | | Tablet | [facility] | + + + + | (no ) | famotidine 20 MG Oral | [facility] | | | Tablet | [facility] | + + + + | (no ) | ferrous sulfate 325 MG | [facility] | | | Oral Tablet | [facility] | + + + + | (no ) | duloxetine 30 MG Delayed | [facility] | | | Release Oral Capsule | [facility] | + + + + | (no date) | atorvastatin 40 MG Oral | [facility] | | | Tablet | [facility] | + + + + | (no date) | 100 ML zoledronic acid | [facility] | | | 0.05 MG/ML Injection | [facility] | | | [Reclast] | | + + + + | (no date) | glucosamine hydrochloride | [facility] | | | 1500 MG Oral Tablet | [facility] | + + + + | (no date) | diltiazem hydrochloride | [facility] | | | 120 MG Oral Tablet | [facility] | + + + + | (no date) | rabeprazole sodium 20 MG | [facility] | | | Delayed Release Oral Tablet | [facility] | | | [Aciphe | | + + + + | (no date) | 24 HR metoprolol succinate | [facility] | | | 50 MG Extended Release | [facility] | | | Oral Table | | + + + + | (no date) | meclizine hydrochloride 25 | [facility] | | | MG Oral Tablet | [facility] | + + + + Problems + + + + | date | description | facility | + + + + | 2024-12-20 00:00 | Paroxysmal atrial | [facility] | | | fibrillation with rapid | [facility] | | | ventricular response | | + + + + | 2024-12-20 00:00 | Hypokalemia | [facility] | | | | [facility] | + + + + Procedures No [...] | [facility] | | | | [facility] | + + + + Vital Signs No information."
[~2025-02-12 11:56] MED LIST changes: +GLUCOSAMINE CH PO; +POTASSIUM CHLO20 ME2 PO
[2025-02-12] MEDS ORDERED: PHYTONADIONE 10 MG in SODIUM CHLORIDE 0.9% 50 ML IV ONE (12:30)
[2025-02-12] MEDS ORDERED: HUMAN PROTHROMBIN COMPLX(PCC) 500 UNIT/20 ML VIAL IV ONE ×2 (12:30)
[2025-02-12] MEDS ORDERED: SODIUM CHLORIDE 0.9% 50 ML IV PRN (12:30)
[2025-02-12 12:52] LABS: BASOPHILS 0.9 % (0.1-1.2); EOSINOPHILS 0.1 % (0.7-5.8); LYMPHOCYTES 5.3 % (19.3-51.7); MCH 29.6 PG (25.6-32.2); MCHC 32.4 g/dL (32.2-35.5); MCV 91.3 fL (79.4-94.8); MONOCYTES 3.4 % (4.7-12.5); NEUTROPHILS 89.7 % (34.0-71.1); RBC 5.20 M/uL (3.93-5.22)
[2025-02-12 13:22] LABS: INR 1.04 (0.80-1.30); PROTIME 13.2 Sec (11.2-14.2)
[2025-02-12 13:28] LABS: ALT (SGPT) 25.0 U/L (14-59); AST (SGOT) 42.0 U/L (15-37); GLOMERULAR FILTRATION RATE,EST 73.0 mL/min (>60); PROTEIN, TOTAL 7.4 g/dL (6.4-8.2); UREA NITROGEN 11.0 mg/dL (7-18)
[2025-02-12] MEDS ORDERED: ACETAMINOPHEN 325 MG TAB PO PRN (14:00)
[2025-02-12] MEDS ORDERED: PROCHLORPERAZINE EDISYLATE 10 MG/2 ML VIAL IV PRN (14:00)
[2025-02-12] MEDS ORDERED: PANTOPRAZOLE SODIUM 40 MG/10 ML VIAL IV SCH (14:04)
[2025-02-12] MEDS ORDERED: GLYCOPYRROLATE 1 MG/5 ML MDV PO SCH (14:10)
[2025-02-12] MEDS ORDERED: LIDOCAINE 2% VISCOUS 6 ML SYR TOP ONE (14:15)
[2025-02-12] MEDS ORDERED: LORazepam 2 MG/ML ML PO PRN (14:15)
[2025-02-12] MEDS ORDERED: MORPHINE SULFATE 20 MG/ML SYR PO PRN (14:15)
--- NOTE | 2025-02-12 14:35 | NUR ---
PT TO RM 111 FROM ER, TRANSPORTED BY ER STAFF VIA STRETCHER. REPORT RECEIVED. PT HAS 2 FRIENDS AT BEDSIDE AT THIS TIME. BED ALARM ON AND CALL LIGHT WITHIN REACH.
[2025-02-12] MEDS ORDERED: MORPHINE SULFATE 4 MG/ML VIAL IV PRN (14:45)
[2025-02-12] MEDS ORDERED: LORazepam 2 MG/ML VIAL IV PRN (14:45)
[2025-02-12 14:46] VITALS: BP 149/109
--- NOTE | 2025-02-12 16:08 | NUR ---
FRIENDS WITH PATIENT, FAMILY MEMBERS ARE DRIVING FROM [place], [place]. FAMILY MEMBERS SHOULD ARRIVE AROUND 1800. PLAN FOR END OF LIFE CARE IN HOSPITAL. PATIENT IS RESPONSIVE TO PAIN ONLY AT THIS TIME. SHE IS FROM [facility]. WILL VISIT WITH FAMILY TOMORROW MORNING REGARDING ANY POTENTIAL NEEDS.
[2025-02-12] MEDS ORDERED: KETOROLAC TROMETHAMINE 15 MG/ML VIAL IV PRN (16:15)
[2025-02-12] MEDS ORDERED: ARTIFICIAL TEARS 15 ML BTL OU PRN (16:15)
[2025-02-12] MEDS ORDERED: HALOPERIDOL LACTATE 5 MG/ML VIAL IV PRN (16:15)
[2025-02-12] MEDS ORDERED: SCOPOLAMINE 1 MG/3 DAYS PATCH 1 EACH TDSY TD SCH (16:15)
[2025-02-12] MEDS ORDERED: ATROPINE SULFATE 1% OPTH DROPS SL PRN (16:15)
[2025-02-12] MEDS ORDERED: METOCLOPRAMIDE HCL 10 MG TAB PO PRN (16:15)
[2025-02-12] MEDS ORDERED: PROCHLORPERAZINE 25 MG SUPP PR PRN (16:15)
[2025-02-12] MEDS ORDERED: fentaNYL citrate 100 MCG/2 ML VIAL IV PRN (16:15)
--- NOTE | 2025-02-12 16:22 | NUR ---
PT RESTING IN BED WITH FRIENDS AT BEDSIDE. FRIENDS STATE THAT THE FAMILY IS ON THEIR WAY AND HOPES TO ARRIVE AROUND 1800. COMFORT CARE CART IN ROOM. PT SHOWS NO VISIBLE SIGNS OF DISCOMFORT AT THIS TIME. BED ALARM ON. TONY SUCTION AVAILABLE AT BEDSIDE.
--- NOTE | 2025-02-12 16:37 | NUR ---
PT'S WRAP TURNER IN ROOM.
--- NOTE | 2025-02-12 17:02 | NUR ---
SCOPOLOMINE PATCH PLACED ORDERED. PT REPOSITIONED AND GIVEN MORPHINE FOR COMFORT AND D/T INCREASED RESPIRATORY RATE. BED ALARM ON. FRIENDS IN ROOM.
--- NOTE | 2025-02-12 17:15 | NUR ---
medications reconciled
--- NOTE | 2025-02-12 18:29 | NUR ---
PT RESTING IN BED WITH HOB SLIGHTLY ELEVATED (23 DEGREES), ATTEMPTED TO SUCTION WITH TONY FOR ORAL SECRETIONS - SCANT AMT SUCTIONED. ATROPINE DROPS GIVEN ORDERED FOR SECRETIONS. NO OTHER NEEDS IDENTIFIED AT THIS TIME. CALL LIGHT WITHIN REACH, FRIENDS AT BEDSIDE, AND BED ALARM ON.
--- NOTE | 2025-02-12 18:36 | NUR ---
ORAL CARE PROVIDED AND CHAPSTICK APPLIED.
--- NOTE | 2025-02-12 19:23 | NUR ---
REPORT RECEIVED FROM DAY SHIFT RN. PT LYING IN BED RESTING WITH EYES CLOSED. RESPIRATIONS EVEN AND UNLABORED. FAMILY AT BEDSIDE. DENIES QUESTIONS/CONCERNS. FAMILY ORIENTED TO NURSE CALL LIGHT. WHITE BOARD UPDATED. NO FURTHER NEEDS.
[2025-02-12] MEDS ORDERED: ONDANSETRON 4 MG TAB ODT SL SCH (20:00)
[2025-02-12] MEDS ORDERED: MELATONIN 3 MG TAB PO PRN (21:00)
--- NOTE | 2025-02-12 21:30 | NUR ---
PT RESTING WITH EYES CLOSED. PT DOES NOT OPEN EYES DURING CARES. NEW PUREWICK PLACED AFTER WESLEY CARE. REDNESS NOTED IN RIGHT GROIN. AREA CLEANED AND DRIED. BARRIER CREAM APPLIED. 2PA TO REPOSITION IN BED WITH PILLOWS. OCCASIONAL MOVEMENT NOTED IN BLE. ORAL CARE DONE. CHAPSTICK APPLIED. MILD SECRETIONS NOTED. ATTEMPTED TO SUCTION WITH NO RESULTS. RESPIRATIONS 28. PRN ADMIN PER EMAR. HOB ELEVATED. BED ALARM FOR SAFETY. CALL LIGHT IN REACH.
--- NOTE | 2025-02-13 00:23 | NUR ---
2PA TO REPOSITION IN BED WITH PILLOWS. PT NON RESPONSIVE DURING CARES. ORAL SECRETIONS NOTED. RR 26. PRN'S ADMIN PER EMAR. ORAL CARE DONE. CHAPSTICK APPLIED. HOB ELEVATED. BED ALARM FOR SAFETY.
--- NOTE | 2025-02-13 02:21 | NUR ---
PT IN BED WITH EYES CLOSED. RR 30. LABORED. PT REPOSITIONED TO RIGHT SIDE WITH PILLOWS. PRN ADMIN PER EMAR. ORAL CARE DONE WITH SWABS AND CHAPSTICK. FACE WASHED. HOB REMAINS ELEVATED. BED ALRAM IN PLACE.
--- NOTE | 2025-02-13 04:25 | NUR ---
PT IN BED WITH EYES CLOSED. RESPIRATIONS EVEN. 2PA TO REPOSITION WITH PILLOWS. HOB ELEVATED. BED ALARM IN PLACE.
--- NOTE | 2025-02-13 05:17 | NUR ---
PT RESTING IN RELAXED POSITION. EYES CLOSED. RR 28. LABORED. ORAL SECRETIONS NOTED. PRN'S ADMIN PER EMAR. PT REPOSITIONED WITH HOB ELEVATED. BED ALARM IN PLACE. PT IN VIEW OF NURSES STATION.
--- NOTE | 2025-02-13 06:24 | NUR ---
NEW PUREWICK PLACED AFTER [facility]. NO URINE OUTPUT NOTED THIS SHIFT. RR 38. LABORED. PRN ADMIN PER EMAR. ORAL CARE DONE. 2PA TO REPOSITION TO RIGHT SIDE WITH PILLOWS. HOB ELEVATED. BED ALARM IN PLACE.
--- NOTE | 2025-02-13 08:00 | NUR ---
REPORT RECEIVED. PATIENT IN BED, CALL LIGHT IN REACH
[2025-02-13] MEDS ORDERED: METOPROLOL SUCCINATE 50 MG TABCR PO SCH (09:00)
[2025-02-13] MEDS ORDERED: PANTOPRAZOLE SODIUM 40 MG TABEC PO SCH (09:00)
--- NOTE | 2025-02-13 09:29 | NUR ---
CALLED AND SPOKE WITH MD. VERBAL ORDERS RECEIVED TO HOLD SCHEDULED MEDICATIONS AND ADMINISTER PRN MEDICATIONS ORDERED FOR COMFORT CARE. PATIENT IN BED, CALL LIGHT IN REACH. PURE WICK IN PLACE. PATIENT WITH AUDIBLE SECRETIONS HEARD WITH RESPIRATIONS. RESPIRATION RATE 40 PATIENT DOES NOT SPONTANEOUSLY RESPOND TO VERBAL STIMULI OR NON-PAINFUL TOUCH. PULSES PRESENT AND EQUAL BILATERALLY TIBIAL AND RADIAL. CALL LIGHT IN REACH
--- NOTE | 2025-02-13 09:50 | NUR ---
PATIENT IN BED, PRN MEDICATIONS ADMINISTERED PER EMAR. ORAL CARE COMPLETED. PATIENT REPOSITIONED IN BED. BARRIER CREAM APPLIES TO REDNESS IN GROIN. CALL LIGHT IN REACH.
--- NOTE | 2025-02-13 10:39 | NUR ---
PATIENT IN BED, CALL LIGHT IN REACH. SUCTIONED ORAL SECRETIONS. NO APPARENT NEEDS NOTED AT THIS TIME.
--- NOTE | 2025-02-13 11:00 | NUR ---
In to see [facility]. [facility] pt. Pt has loud gurgling respirations. Pt is close to end of life. I called pts step daughter Jeny. I updated I spoke with the hospitalist and he would like pt to return to [facility]. I have spoken with [facility] and they can accept her back tomorrow with [facility]osp[facility]. Chart was faxed to Irma at hospice this morning and they will send DME this afternoon and plan on admission tomorrow. Jeny is cleaning the room to set up the bed when it is delivered this afternoon ortomorrow morning.
--- NOTE | 2025-02-13 11:17 | NUR ---
PATIENT IN BED, PRN MEDICATION ADMINISTERED FOR SECRETIONS PER EMAR. CALL LIGHT IN REACH. PASTORAL CARE AT BEDSIDE. ORAL CARE PROVIDED.
--- NOTE | 2025-02-13 11:27 | NUR ---
PRN MEDICATION ADMINISTERED PER EMAR. RESPIRATIONS 38 WITH AUDIBLE RESPIRATORY SECRETIONS. PATIENT REPOSITIONED IN BED. PASTORAL CARE AT BEDSIDE. CALL LIGHT IN REACH.
--- NOTE | 2025-02-13 12:15 | NUR ---
PATIENT IN BED, CALL LIGHT IN REACH. RESPIRATION RATE 40, AUDIBLE RESPIRATORY SECRETIONS WITH RESPIRATIONS. SUCTIONED AND COMPLETED ORAL CARE.
--- NOTE | 2025-02-13 12:24 | NUR ---
PRN MEDICATION GIVEN PER EMAR. PATIENT IN BED, CALL LIGHT IN REACH.
--- NOTE | 2025-02-13 13:44 | NUR ---
PATIENT IN BED. ORAL CARE COMPLETED, PATIENT REPOSITIONED. [facility] CARE COMPLETED, PURE WICK CHANGED. CALL LIGHT IN REACH.
--- NOTE | 2025-02-13 13:55 | NUR ---
Spoke with Irma from [facility]. Bed will be delivered tomorrow early am.
--- NOTE | 2025-02-13 14:48 | NUR ---
PATIENT IN BED, EYES CLOSED, CHEST RISE EVEN. CALL LIGHT IN REACH.
--- NOTE | 2025-02-13 16:01 | NUR ---
PATIENT IN BED. PATIENT REPOSITIONED IN BED, ORAL CARE COMPLETED. CALL LIGHT IN REACH.
--- NOTE | 2025-02-13 17:01 | NUR ---
PATIENT IN BED. RESPIRATION RATE 38, AUDIBLE SECRETIONS HEARD WITH RESPIRATIONS. PRN MEDICATION ADMINISTERED PER EMAR. CALL LIGHT IN REACH
--- NOTE | 2025-02-13 18:12 | NUR ---
PATIENT IN BED. REPOSITIONED PATIENT. PUREWICK WITHOUT URINE OUTPUT, BREIF DRY. ORAL CARE COMPLETED. PATIENT IN BED, CALL LIGHT IN REACH.
--- NOTE | 2025-02-13 18:19 | NUR ---
PATIENT IN BED, CALL LIGHT IN REACH. FAMILY AT BEDSIDE.
--- NOTE | 2025-02-13 18:51 | EKG ---
[facility] [address] [place] [address] Signed Normal sinus rhythm Possible Inferior infarct (cited on or before 21-JUN-2022) Anteroseptal infarct (cited on or before 20-MAY-2022) Abnormal ECG When compared with ECG of 20-DEC-2024 13:11, Sinus rhythm has replaced Atrial fibrillation Vent. rate has decreased BY [address] no longer depressed in Lateral leads Nonspecific T wave abnormality now evident in Inferior leads T wave inversion no longer evident in Lateral leads Confirmed by Grayson Wheeler MD () on 02/13/2025 6:51:40 PM Electronically Signed By: GRAYSON WHEELER MD 02/13/251850 PATIENT NAME: MICHELLE PEREZ Electrocardiogram DATE OF : 38 PHYSICIAN: GRAYSON WHEELER MD REPORT #: [id number] REPORT IS CONFIDENTIAL AND NOT TO BE RELEASED WITHOUT AUTHORIZATION
--- NOTE | 2025-02-13 19:19 | NUR ---
VERBAL REPORT RECEIVED FROM BEKAH CASSIDY. PATIENT IS RESTING IN BED EYES CLOSED BREATHING IS LABORED ORAL SECRETIONS NOTED. CALL LIGHT IN REACH. BED ALARM ON FOR PATIENT SAFETY.
--- NOTE | 2025-02-13 20:21 | NUR ---
PATIENT RESTING IN BED EYES CLOSED BREATHING IS LABORED 40 RR, ORAL SECRETIONS NOTED. ORAL CARE PERFORMED. WESLEY CARE PERFORMED, FRESH PUREWICK PLACED. BED ALARM ON FOR PATIENT SAFETY. CALL LIGHT IN REACH.
--- NOTE | 2025-02-13 22:46 | NUR ---
RR IN THE 40S, WET GURGLING SOUNDING. PRN MORPHINE AND ATIVAN ADMINISTERED PER ORDERS FOR COMFORT. HOB ELEVATED. BED IN LOW POSITION.
--- NOTE | 2025-02-13 23:42 | NUR ---
ELEVATED RESPIRATIONS NOTED. PRN PAIN MEDICATION ADMINISTERED DUE TO RESPIRATIONS BEING BETWEEN 40s-50s PER MIN. PATIENT REPOSITIONED IN BED WITH PILLOWS PLACED UNDER RIGHT SIDE. ORAL CARE AND CHAPSTICK PLACED ON PATIENT. BEDSIDE FAN IN PLACE FOR COMFORT. BED ALARM ON. CALL LIGHT IN REACH.
--- NOTE | 2025-02-14 00:50 | NUR ---
PATIENT RESPIRTATIONS ARE 41 PER MINUTE. PRN PAIN MEDICATION GIVEN FOR INCREASED RESPIRATIONS. PATIENT REPOSITIONED IN BED. BED ALARM ON FOR PATIENT SAFETY. CALL LIGHT IN REACH.
--- NOTE | 2025-02-14 00:53 | NUR ---
MD UPDATED REGARDING PT RESPIRATORY STATUS. MD TO PLACE ORDERS.
[2025-02-14] MEDS ORDERED: MORPHINE SULFATE 4 MG/ML VIAL IV PRN ×2 (01:00)
[2025-02-14] MEDS ORDERED: MORPHINE SULFATE 10 MG/ML VIAL IV PRN (01:00)
[2025-02-14] MEDS ORDERED: LORazepam 2 MG/ML VIAL IV PRN ×3 (01:00)
[2025-02-14] MEDS ORDERED: MORPHINE SULFATE 4 MG/ML VIAL ONE ×2 (01:29→01:55)
[2025-02-14] MEDS ORDERED: MORPHINE SULFATE 10 MG/ML VIAL ONE (02:21)
--- NOTE | 2025-02-14 03:38 | NUR ---
[facility] DOWNTIME FROM [id number]: 0135- PT IN BED WITH EYES CLOSED. RR 38. LABORED. PRN ADMIN PER EMAR. 2PA TO REPOSITION TO RIGHT SIDE WITH PILLOWS. ORAL CARE DONE. FACE WASHED. BED ALARM IN PLACE. 0156- RR 36 AND IRREGULAR. GURGLING SOUNDS NOTED. PRN ADMIN PER EMAR. HOB ELEVATED. 0223- RR 28, IRREGULAR, AND LABORED. PRN ADMIN PER EMAR. 0250- PT RESTING IN BED WITH EYES CLOSED. RR 20. IRREGULAR. GURGLING HEARD WITH EXPIRATION. PT LYING IN RELAXED POSITION. HOB ELEVATED. 0317- NO RESPIRATIONS NOTED. NO APICAL PULSE AUSCULTATED BY THIS RN FOR ONE MINUTE. NOTIFIED AND WILL COME TO THE FLOOR TO ASSESS.
--- NOTE | 2025-02-14 05:15 | NUR ---
POST MORTEM CARE COMPLETE. SCOPALAMINE PATCH REMOVED FROM BEHIND LEFT EAR. PASTORAL CARE IN ROOM TO COLLECT PT BELONGINGS. 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
--- NOTE | 2025-02-14 07:40 | NUR ---
CALLED AND SPOKE WITH MICHAELA MCDONNELL REGARDING PT'S PERSONAL MEDICATIONS IN THE SAFE. THEY REQUESTED MEDICATIONS BE DESTROYED. WILL OBTAIN SHIPPING ENVELOPE FROM PHARMACY AND MAIL OUT MEDICATIONS TO [facility].
[2025-02-14] MEDS ORDERED: SCOPOLAMINE 1 MG/3 DAYS PATCH 1 EACH TDSY TD SCH (09:00)
[2025-02-15] MEDS ORDERED: SCOPOLAMINE 1 MG/3 DAYS PATCH 1 EACH TDSY TD SCH (09:00)
== END 2025-02-14 03:17 | DRG 951 ==
LOC: ED 11:56 → MS 14:24
PROVIDERS: Emergency Medicine; ADMIT Internal Medicine; ATTEND Internal Medicine
PROC: 30283B1 Transfusion of Nonautologous 4-Factor Prothrombin Complex Concentrate into Vein, Percutaneous Approach (ICD-10-PCS; principal; 2025-02-12)
DX: Z51.5 Encounter for palliative care (principal); I62.9 Nontraumatic intracranial hemorrhage, unspecified; I10 Essential (primary) hypertension; E03.9 Hypothyroidism, unspecified; K21.9 Gastro-esophageal reflux disease without esophagitis; F32.A Depression, unspecified; Z66 Do not resuscitate; I48.0 Paroxysmal atrial fibrillation; Z86.73 Personal history of transient ischemic attack (TIA), and cerebral infarction without residual deficits; Z85.3 Personal history of malignant neoplasm of breast; Z98.890 Other specified postprocedural states; Z79.01 Long term (current) use of anticoagulants; Z79.02 Long term (current) use of antithrombotics/antiplatelets; Z88.5 Allergy status to narcotic agent; Z88.6 Allergy status to analgesic agent; Z91.040 Latex allergy status
CPT/HCPCS: 36415; 51702; 70450; 70496; 70498; 71045; 80053; 85025; 85610; 85730; 93005; 93010; 96374; 96375; 96376; 99291; G0378; J2060; J2270; J2405; J2470; J7168; Q9967